=== PATIENT | female | born 1935 | race Caucasian/White ===

== ENCOUNTER 2018-09-08 16:59 | Emergency (ER) | payer OTHER ==
[2018-09-08] MEDS ORDERED: ONDANSETRON 4 MG/2 ML VIAL ONE (17:47)
[2018-09-08] MEDS ORDERED: PANTOPRAZOLE 40 MG INJ ONE ×2 (17:47→18:17)
[2018-09-08] MEDS ORDERED: WATER FOR INJ,STERILE 10 ML ONE (17:48)
[2018-09-08 17:52] LABS: Absolute Lymphocytes (CBC) 2.2 K/uL (0.7-4.9); Basophils % 0.3 % (0-1.3); Eosinophils % 2.1 % (0-4.4); Hematocrit 32.5 % (36.0-45.0); Lymphocytes % 23.1 % (15.3-44.8); MPV 10.8 fL (7.6-11.3); Monocytes % 10.7 % (3.3-12.3); RBC Red Blood Cell Count 3.48 M/uL (3.86-4.86)
--- NOTE | 2018-09-08 17:59 | RAD REPORT ---
EXAM DESCRIPTION: Niko Single View09/08/2018 5:48 pm CLINICAL HISTORY: Abdominal pain COMPARISON: 2016 FINDINGS: A subcentimeter right lung nodule unchanged is benign Small right calcified granuloma Left lung appears clear of acute infiltrate. Heart is normal size IMPRESSION: No acute abnormalities displayed
[2018-09-08 18:09] LABS: Protime INR 1.48
[2018-09-08] MEDS ORDERED: NA CHLORIDE 0.9% 250 ML ONE (18:17)
[2018-09-08 18:22] LABS: ALT/SGPT 17 U/L (12-78); AST/SGOT 17 U/L (15-37); Albumin 3.4 g/dL (3.4-5.0); Alkaline Phosphatase 40 U/L (45-117); BUN Blood Urea Nitrogen 65 mg/dL (7-18); Bicarbonate 27 mmol/L (21-32); Bilirubin Direct 0.1 mg/dL (0-0.2); Bilirubin Total 0.3 mg/dL (0.2-1.0); Glucose Level 147 mg/dL (74-106); Magnesium 1.8 mg/dL (1.8-2.4); NT PRO-BNP 529 pg/mL (<450); Protein, Total 6.9 g/dL (6.4-8.2); Sodium Level 142 mmol/L (136-145); Troponin (Emerg Dept Use Only) < 0.02 ng/mL (0.0-0.045)
--- NOTE | 2018-09-08 19:44 | ER ---
Nurse's Notes [facility] Name: Lenora Hamlin Age: 83 yrs Sex: Female : 1935 Arrival Date: 09/08/2018 Time: 17:01 Bed 28 Private MD: Diagnosis: Gastrointestinal hemorrhage, unspecified Presentation: 09/08 17:02 Presenting complaint: Patient states: i feel dizzy today, i went to the bathroom and hj saw my stool is black and tarry; my stomach has been hurting for a month now; reports diarrhea; takes xarelto;. Transition of care: patient was not received from another setting of care. Onset of symptoms was September 08, 2018. Risk Assessment: Do you want to hurt yourself or someone else? Patient reports no desire to harm self or others. Initial Sepsis Screen: Does the patient meet any 2 criteria? No. Patient's initial sepsis screen is negative. Does the patient have a suspected source of infection? No. Patient's initial sepsis screen is negative. Care prior to arrival: None. 17:02 Method Of Arrival: Ambulatory 17:02 Acuity: MERCEDEZ 3 hj Historical: - Allergies: 17:04 Sulfa (Sulfonamide Antibiotics); hj - PMHx: 17:04 Atrial Fib; Hypertension; Hyperlipidemia; Thyroid problem; hj - PSHx: 17:04 hip surgery both; both wrist surgery; Thyroidectomy; hj - Immunization history:: Adult Immunizations up to date. - Social history:: Smoking status: Patient/guardian denies using tobacco. - Ebola Screening: : No symptoms or risks identified at this time. Screenin:04 Abuse screen: Denies threats or abuse. Denies injuries from another. Nutritional rv screening: No deficits noted. Tuberculosis screening: No symptoms or risk factors identified. Fall Risk None identified. Assessment: 19:02 General: Appears in no apparent distress. comfortable, Behavior is calm, cooperative. rv Pain: Denies pain. Neuro: Level of Consciousness is awake, alert, obeys commands, Oriented to person, place, time, situation. Cardiovascular: Capillary refill < 3 seconds. Respiratory: Airway is patent. GI: Reports rectal bleeding. : No signs and/or symptoms were reported regarding the genitourinary system. EENT: No signs and/or symptoms were reported regarding the EENT system. Derm: Skin is intact. Musculoskeletal: No signs and/or symptoms reported regarding the musculoskeletal system. 20:36 Reassessment: Patient appears in no apparent distress at this time. Patient and/or rv family updated on plan of care and expected duration. Pain level reassessed. Patient is alert, oriented x 3, equal unlabored respirations, skin warm/dry/pink. Patient states feeling better. Vital Signs: 17:04 BP 127 / 94; Pulse 84; Resp 18; Temp 97.4(TE); Pulse Ox 96% on R/A; Weight 81.65 kg; hj Height 5 ft. 4 in. (162.56 cm); Pain 1/10; 19:00 BP 132 / 33; Pulse 84; Resp 18; Pulse Ox 98% ; rv 19:30 BP 119 / 60; Pulse 82; Resp 16; Pulse Ox 99% ; rv 20:00 BP 133 / 56; Pulse 89; Resp 18; Pulse Ox 99% ; rv 20:30 BP 120 / 60; Pulse 84; Resp 19; Pulse Ox 97% ; rv 21:26 BP 118 / 61 RA Supine; Pulse 81; Resp 18 S; Pulse Ox 98% on R/A; rv 17:04 Body Mass Index 30.90 (81.65 kg, 162.56 cm) hj 19:00 PATIENT IS ON HER SIDE rv ED Course: 17:01 Patient arrived in ED. hj 17:03 Triage completed. hj 17:06 Arm band placed on right wrist. hj 17:09 Ti Weinberg, JENNA is Primary Nurse. rv 17:09 Domenic Ashford PA is PHCP. cp 17:09 Elton Brewer MD is Attending Physician. cp 17:12 Inserted saline lock: 20 gauge in left antecubital area, using aseptic technique. Blood ca1 collected. 17:44 XRAY Chest (1 view) Sent. rv 17:47 XRAY Chest (1 view) In Process Unspecified. EDMS 17:55 EKG done, by time study technician. reviewed by Domenic BRAUN. sm3 19:03 Patient has correct armband on for positive identification. Bed in low position. Call rv light in reach. Side rails up X 1. Adult w/ patient. Pulse ox on. NIBP on. 20:00 Inserted saline lock: 22 gauge in right forearm, using aseptic technique. rv 21:26 No provider procedures requiring assistance completed. Patient transferred, IV remains rv in place. Administered Medications: 17:44 Drug: Zofran 4 mg Route: IVP; Site: left antecubital; rv 18:59 Follow up: Response: No adverse reaction rv 17:45 Drug: ProTONIX 40 mg Route: IVP; Site: left antecubital; rv 18:59 Follow up: Response: No adverse reaction rv 18:10 Drug: ProTONIX 40 mg Route: IVP; Site: left antecubital; rv 20:36 Follow up: Response: No adverse reaction rv 18:10 Drug: ProTONIX 8 mg/hr Route: IV; Rate: 25 ml/hr; Site: left antecubital; rv 21:25 Follow up: IV Status: Infusion continued upon transfer rv 20:13 Drug: fentaNYL (PF) 25 mcg Route: IVP; Site: right forearm; rv 21:25 Follow up: Response: Pain is unchanged, physician notified rv 20:14 Drug: NS 0.9% 1000 ml Route: IV; Rate: 1 bolus; Site: right forearm; rv 21:25 Follow up: IV Status: Completed infusion rv 21:24 Drug: fentaNYL (PF) 25 mcg Route: IVP; Site: right forearm; rv 21:24 Follow up: Response: Medication administered at discharge. rv Outcome: 19:43 ER care complete, transfer ordered by . 21:27 Transferred by ground EMS to [facility], Transfer form completed. rv X-rays sent w/ patient. 21:27 Condition: stable 21:27 Instructed on the need for transfer, Demonstrated understanding of instructions. 21:27 Patient left the ED. rv Signatures: Dispatcher [employer] EDMS Arnaud Vigil RN RN hj Domenic Ashford PA PA cp Chiara Singleton sm3 Ti Weinberg RN RN rv Sarah Eng RN RN ca1 Corrections: (The following items were deleted from the chart) 17:06 17:04 Pulse 84bpm; Resp 18bpm; Pulse Ox 96% RA; Temp 97.4F Temporal; 81.65 kg; Height 5 hj ft. 4 in.; BMI: 30.9; Pain 1/10; hj
--- NOTE | 2018-09-08 19:44 | EDPHYS ---
Physician Documentation [facility] Name: Lenora Hamlin Age: 83 yrs Sex: Female : 1935 Arrival Date: 09/08/2018 Time: 17:01 Bed 28 Private MD: ED Physician Elton Brewer HPI: 09/08 17:22 This 83 yrs old Female presents to ER via Ambulatory with complaints of cp Rectal Bleeding. 17:22 The patient presents to the emergency department with black stool. Onset: The cp symptoms/episode began/occurred today. Context: the patient takes oral Xarelto. Associate signs and symptoms: Pertinent positives: abdominal pain in the mid abdomen, dizziness. Historical: - Allergies: 17:04 Sulfa (Sulfonamide Antibiotics); hj - PMHx: 17:04 Atrial Fib; Hypertension; Hyperlipidemia; Thyroid problem; hj - PSHx: 17:04 hip surgery both; both wrist surgery; Thyroidectomy; hj - Immunization history:: Adult Immunizations up to date. - Social history:: Smoking status: Patient/guardian denies using tobacco. - Ebola Screening: : No symptoms or risks identified at this time. ROS: 17:26 Eyes: Negative for injury, pain, redness, and discharge. cp 17:26 Constitutional: Negative for body aches, chills, fever, poor PO intake. 17:26 ENT: Negative for drainage from ear(s), ear pain, sore throat, difficulty swallowing, difficulty handling secretions. 17:26 Cardiovascular: Negative for chest pain, edema, palpitations. 17:26 Respiratory: Negative for cough, shortness of breath, wheezing. 17:26 Abdomen/GI: Positive for abdominal pain, black/tarry stool, Negative for vomiting, diarrhea, constipation. 17:26 : Negative for urinary symptoms. 17:26 Neuro: Positive for dizziness, Negative for altered mental status, headache, syncope, weakness. 17:26 All other systems are negative. Exam: 17:30 Constitutional: The patient appears in no acute distress, alert, awake, cp non-diaphoretic, non-toxic, well developed, well nourished. 17:30 Head/Face: Normocephalic, atraumatic. cp 17:30 Eyes: Periorbital structures: appear normal, Conjunctiva: normal, no exudate, no injection, Sclera: no appreciated abnormality, Lids and lashes: appear normal, bilaterally. 17:30 ENT: External ear(s): are unremarkable, Nose: is normal, Mouth: Lips: moist, Oral mucosa: moist, Posterior pharynx: is normal, airway is patent, no erythema, no exudate. 17:30 Chest/axilla: Inspection: normal, Palpation: is normal, no crepitus, no tenderness. 17:30 Cardiovascular: Rate: normal, Rhythm: regular, Edema: is not appreciated, JVD: is not appreciated. 17:30 Respiratory: the patient does not display signs of respiratory distress, Respirations: normal, no use of accessory muscles, no retractions, no splinting, no tachypnea, labored breathing, is not present, Breath sounds: are clear throughout, no decreased breath sounds, no stridor, no wheezing. 17:30 Abdomen/GI: Inspection: abdomen appears normal, Bowel sounds: active, all quadrants, Palpation: soft, in all quadrants, nontender, in all quadrants, rebound tenderness, is not appreciated, involuntary guarding, is not appreciated. 17:30 Skin: no rash present. 17:30 Neuro: Orientation: to person, place \T\ time. Mentation: is normal, Cerebellar function: is grossly normal, Motor: moves all fours, strength is normal, Sensation: is normal. 17:55 ECG was reviewed by the Attending Physician. cp 18:00 : Rectal exam: Stool: black, Guaiac testing: results were positive for occult blood. cp Vital Signs: 17:04 BP 127 / 94; Pulse 84; Resp 18; Temp 97.4(TE); Pulse Ox 96% on R/A; Weight 81.65 kg; hj Height 5 ft. 4 in. (162.56 cm); Pain 1/10; 19:00 BP 132 / 33; Pulse 84; Resp 18; Pulse Ox 98% ; rv 19:30 BP 119 / 60; Pulse 82; Resp 16; Pulse Ox 99% ; rv 20:00 BP 133 / 56; Pulse 89; Resp 18; Pulse Ox 99% ; rv 20:30 BP 120 / 60; Pulse 84; Resp 19; Pulse Ox 97% ; rv 21:26 BP 118 / 61 RA Supine; Pulse 81; Resp 18 S; Pulse Ox 98% on R/A; rv 17:04 Body Mass Index 30.90 (81.65 kg, 162.56 cm) hj 19:00 PATIENT IS ON HER SIDE rv MDM: 17:09 Patient medically screened. 18:48 Data reviewed: vital signs, nurses notes, lab test result(s), EKG, radiologic studies, cp plain films. Test interpretation: by ED physician or midlevel provider: ECG, plain radiologic studies. 09/08 17:32 Order name: Basic Metabolic Panel; Complete Time: 18:25 09/08 18:26 Interpretation: Normal except: GLUC 147; BUN 65; GFR 48. 09/08 17:32 Order name: CBC with Diff; Complete Time: 17:54 09/08 17:54 Interpretation: Normal except: RBC 3.48; HGB 11.2; HCT 32.5. 09/08 17:32 Order name: LFT's; Complete Time: 18:25 09/08 18:26 Interpretation: Normal except: ALK 40; A/G 1.0. 09/08 17:32 Order name: Magnesium; Complete Time: 18:25 09/08 17:32 Order name: NT PRO-BNP; Complete Time: 18:25 09/08 17:32 Order name: PT-INR; Complete Time: 18:25 09/08 18:26 Interpretation: Reviewed. 09/08 17:32 Order name: Troponin (emerg Dept Use Only); Complete Time: 18:25 09/08 18:26 Interpretation: TROPED < 0.02; Reviewed. 09/08 17:32 Order name: XRAY Chest (1 view); Complete Time: 18:25 09/08 18:26 Interpretation: Report review. 09/08 17:32 Order name: Ptt, Activated; Complete Time: 18:25 09/08 17:32 Order name: Type And Screen; Complete Time: 19:33 09/08 17:09 Order name: EKG; Complete Time: 17:10 09/08 17:09 Order name: EKG - Nurse/Tech; Complete Time: 17:44 09/08 17:32 Order name: Cardiac monitoring; Complete Time: 17:44 09/08 17:32 Order name: IV Saline Lock; Complete Time: 17:33 09/08 17:32 Order name: Labs collected and sent; Complete Time: 17:33 cp 09/08 17:32 Order name: O2 Per Protocol; Complete Time: 17:33 cp 09/08 17:32 Order name: O2 Sat Monitoring; Complete Time: 17:33 cp EC:55 Rate is 80 beats/min. Rhythm is regular. [place] interval is normal. QRS interval is normal. cp QT interval is normal. Interpreted by me. Reviewed by me. Administered Medications: 17:44 Drug: Zofran 4 mg Route: IVP; Site: left antecubital; rv 18:59 Follow up: Response: No adverse reaction rv 17:45 Drug: ProTONIX 40 mg Route: IVP; Site: left antecubital; rv 18:59 Follow up: Response: No adverse reaction rv 18:10 Drug: ProTONIX 40 mg Route: IVP; Site: left antecubital; rv 20:36 Follow up: Response: No adverse reaction rv 18:10 Drug: ProTONIX 8 mg/hr Route: IV; Rate: 25 ml/hr; Site: left antecubital; rv 21:25 Follow up: IV Status: Infusion continued upon transfer rv 20:13 Drug: fentaNYL (PF) 25 mcg Route: IVP; Site: right forearm; rv 21:25 Follow up: Response: Pain is unchanged, physician notified rv 20:14 Drug: NS 0.9% 1000 ml Route: IV; Rate: 1 bolus; Site: right forearm; rv 21:25 Follow up: IV Status: Completed infusion rv 21:24 Drug: fentaNYL (PF) 25 mcg Route: IVP; Site: right forearm; rv 21:24 Follow up: Response: Medication administered at discharge. rv Disposition: 09/08/18 19:43 Transfer ordered to [facility]. Diagnosis is Gastrointestinal hemorrhage, unspecified. - Reason for transfer: Higher level of care. - Accepting physician is DR Haile. - Condition is Stable. - Problem is new. - Symptoms have improved. Addendum: 09/13/2018 14:21 Co-signature as Attending Physician, Elton Brewer MD. m a2 Signatures: Dispatcher [employer] EDMS Arnaud Vigil RN RN hj Domenic Ashford PA PA cp Elton Brewer MD MD ma2 Ti Weinberg RN RN rv Corrections: (The following items were deleted from the chart) 09/08 21:27 19:43 09/08/2018 19:43 Transfer ordered to [facility]. Diagnosis is rv Gastrointestinal hemorrhage, unspecified. Reason for transfer: Higher level of care. Accepting physician is DR Haile. Condition is Stable. Problem is new. Symptoms have improved. cp
[2018-09-08] MEDS ORDERED: FENTANYL CITR 100 MCG/2 ML ONE ×2 (20:22→21:33)
[2018-09-08] MEDS ORDERED: NA CHLORIDE 0.9% 1,000 ML ONE (20:23)
--- NOTE | 2018-09-09 10:29 | EKG ---
Test Date: 2018-09-08 Test Time: 17:46:12 Parking Manager: DAVEY MEASUREMENT RESULTS: Intervals: Rate: 80 DC: 178 QRSD: 68 QT: 388 QTc: 447 [place]: P: 45 DC: 178 QRS: 43 T: 62 INTERPRETIVE STATEMENTS: Normal sinus rhythm Normal ECG Compared to ECG 08/01/2013 19:24:19 Sinus tachycardia no longer present Atrial premature complex(es) no longer present Ventricular premature complex(es) no longer present ST (T wave) deviation no longer present Electronically Signed On 09-09-18 10:28:20 CDT by Flo Mcgee
== END 2018-09-08 21:27 | disposition short-term general hospital (02) ==
LOC: ER 16:59
DX: K92.2 Gastrointestinal hemorrhage, unspecified (principal); Z88.2 Allergy status to sulfonamides
CPT/HCPCS: 93005; 85025; 80048; 36415; 86900; 83735; 86850; 85610; 86901; 80076; 85730; 84484; 83880; 71045; 99285; C9113 ×2; J3010 ×2; J7030; J2405